=== PATIENT | male | born 1995 | race Caucasian/White ===

== ENCOUNTER 2016-10-24 19:24 | Emergency (ER) | payer OTHER ==
[~2016-10-24] VITALS: Ht 167.6 cm; Wt 68.0 kg
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
--- NOTE | 2016-10-24 19:40 | NUR ---
LINDA RAMOS AT BEDSIDE FOR EVAL.
[2016-10-24] MEDS ORDERED: diphenhydrAMINE HCL 25 MG CAPSULE ONE (19:49)
[2016-10-24] MEDS ORDERED: FAMOTIDINE (20 MG) 20 MG TABLET ONE (19:49)
[2016-10-24] MEDS ORDERED: IBUPROFEN 600 MG TABLET PO ONE ×2 (19:49→20:00)
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
[2016-10-24] MEDS ORDERED: FAMOTIDINE (20 MG) 20 MG TABLET PO ONE (20:00)
[2016-10-24] MEDS ORDERED: diphenhydrAMINE HCL 25 MG CAPSULE PO ONE (20:00)
--- NOTE | 2016-10-24 20:08 | NUR ---
Patient is resting comfortably in bed. VSS
--- NOTE | 2016-10-24 20:33 | NUR ---
LINDA RAMOS AT BEDSIDE SPEAKING TO PT REGARDING RESULTS.
[2016-10-24] MEDS ORDERED: DEXAMETHASONE SOD PHOSPHATE 10 MG/ML VIAL ONE (20:35)
--- NOTE | 2016-10-24 20:41 | NUR ---
[facility] AT BEDSIDE FOR REPORT
--- NOTE | 2016-10-24 20:57 | NUR ---
Patient discharged to home in stable condition. Written and verbal after care instructions given. Patient verbalizes understanding of instruction. ambulatory with a steady gait. instructed not to drive. pt verbalize understanding.
[2016-10-24 20:58] VITALS: BP 128/68
[2016-10-24] MEDS ORDERED: DEXAMETHASONE SOD PHOSPHATE 4 MG/ML VIAL IV ONE (21:00)
== END 2016-10-24 20:59 | disposition home or self-care (01) ==
LOC: ER 19:28
DX: S02.609A Fracture of mandible, unspecified, initial encounter for closed fracture (principal); Y04.0XXA Assault by unarmed brawl or fight, initial encounter; Y92.89 Other specified places as the place of occurrence of the external cause; Y93.89 Activity, other specified; Y99.8 Other external cause status
CPT/HCPCS: 70486-TC; A4606; J1100; Q0163; Z7610